=== PATIENT | female | born 1985 | race Asian ===

== ENCOUNTER → 2021-03-04 | Outpatient (CLI) | payer OTHER ==
[~2021-03-04] VITALS: Ht 165.1 cm; Wt 57.6 kg
[~2021-03-04] MED LIST: ACET325T9 PO; CLONIPINE; DEXT10TA23 PO; DEXT25CA4 PO; DIPH25CA58 PO; DULO20CA50 PO; FEXO60TA25 PO; FIBER; LUBI8CAP4 PO; METH100V IJ; METH2.5T PO; POLY17PO5 PO; SINCALIDE 1.15 MCG in IV NORMAL SALINE 50ML 30 ML IV ONE; SONATA; TAGAMENT
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
--- NOTE | 2021-03-04 12:11 | RAD ---
EXAM: HEPATOBILIARY SCINTIGRAPHY WITH GALLBLADDER EJECTION FRACTION CALCULATION. HISTORY: Abdominal pain/nausea. TECHNIQUE: 5.5 mCi technetium-99m Choletec were administered intravenously and scintigraphic images o f the abdomen obtained. After filling of the gallbladder, 1.15 mcg of sincalide were infused and the gallbladder ejection fraction calculated. FINDINGS: There is prompt hepatic clearance of tracer from the blood pool. There is homogeneous distr ibution throughout the liver. There is normal filling of the gallbladder and clearance into the bilia ry tree and small bowel. The gallbladder ejection fraction is 99% (normal >35%). IMPRESSION: 1. Normal gallbladder ejection fraction. Electronically signed by: Ruth Wills MD (03/04/2021 12:09 PM) [id number]
== END ==
LOC: US 08:13
PROVIDERS: ATTEND Family Medicine
DX: R12 Heartburn (principal); K82.8 Other specified diseases of gallbladder
CPT/HCPCS: 76700; 78227; A9537; J2805